=== PATIENT | female | born 1975 | race Two or more races ===

== ENCOUNTER 2021-12-29 05:37 | Day surgery (SDC) | payer OTHER ==
[~2021-12-29] VITALS: Ht 157.5 cm; Wt 91.6 kg
== END 2021-12-29 14:45 | disposition home or self-care (01) ==
LOC: CIR.AMB 05:37
PROVIDERS: ATTEND Surgery Surgery of the Hand
DX: M65.841 Other synovitis and tenosynovitis, right hand (principal); Z20.822 Contact with and (suspected) exposure to COVID-19; Z88.0 Allergy status to penicillin